=== PATIENT | female | born 1980 | race Caucasian/White ===

== ENCOUNTER 2021-10-15 14:43 | Emergency (ER) | payer MEDICAID ==
[~2021-10-15] VITALS: Ht 157.5 cm; Wt 55.0 kg
[~2021-10-15 14:43] MED LIST: DOXY150T5 PO; FERR142T6 PO; IBUP-779 PO; METH PO; PNV1CAPS17 PO
[2021-10-15 14:45] VITALS: BP 137/91
[2021-10-15] MEDS ORDERED: METR500T MT (17:57)
[2021-10-15] MEDS ORDERED: PENI500T MT (17:57)
[2021-10-15] MEDS ORDERED: TOPUD MT (17:59)
[2021-10-15] MEDS ORDERED: IBUP-2028 MT (18:00)
== END 2021-10-15 21:05 | disposition home or self-care (01) ==
LOC: ER 14:43
DX: K02.9 Dental caries, unspecified (principal); R51.9 Headache, unspecified
CPT/HCPCS: 99281